=== PATIENT | male | born 1965 | race Caucasian/White ===

== ENCOUNTER 2019-04-21 20:21 | Emergency (ER) | payer MEDICARE ==
[~2019-04-21] VITALS: Ht 165.1 cm; Wt 122.1 kg
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
[2019-04-21 21:12] LABS: BASOPHILS # (AUTO) 0.05 x10^3/uL (0-0.1); BASOPHILS % (AUTO) 0 % (0-1); EOSINOPHILS # (AUTO) 0.11 x10^3/uL (0-0.4); EOSINOPHILS % (AUTO) 1 % (1-7); LYMPHOCYTES # (AUTO) 1.42 x10^3/uL (1-3.4); LYMPHOCYTES % (AUTO) 8 % (22-44); MD NO; MEAN CORPUSCULAR HEMOGLOBIN 31.5 pg (27.5-34.5); MEAN CORPUSCULAR HGB CONC 33.6 g/dL (33.2-36.2); MEAN CORPUSCULAR VOLUME 93.9 fL (81-97); MONOCYTES # (AUTO) 0.74 x10^3/uL (0.2-0.8); MONOCYTES % (AUTO) 4 % (2-9); NEUTROPHILS % (AUTO) 87 % (42-75); PLATELET COUNT 242 x10^3/uL (130-400); RED BLOOD COUNT 5.09 x10^6/uL (4.38-5.82); RED CELL DISTRIBUTION WIDTH 13.4 % (9.4-14.8)
[2019-04-21 21:19] LABS: ALANINE AMINOTRANSFERASE 42 U/L (12-78); ALBUMIN 4.4 g/dL (3.4-5.0); ANION GAP 6 mmol/L (5-15); CHLORIDE 108 mmol/L (98-107); CREATININE 1.02 mg/dL (0.7-1.3)
[2019-04-21 21:22] LABS: ALKALINE PHOSPHATASE 84 U/L (45-117); BILIRUBIN,TOTAL 0.8 mg/dL (0.2-1.0); TROPONIN I 0.089 ng/mL (0.000-0.045)
[2019-04-21] MEDS ORDERED: CLOPIDOGREL 75 MG TABLET ONE (21:40)
[2019-04-21] MEDS ORDERED: ONDANSETRON ODT 4 MG ONE (22:05)
--- NOTE | 2019-04-21 22:10 | NUR ---
REPORT GIVEN TO [facility]
--- NOTE | 2019-04-21 22:11 | NUR ---
REPORT FROM TEDDY LUGO, ASSUME CARE OF PT AT THIS TIME.
--- NOTE | 2019-04-21 22:21 | NUR ---
PT MEDICATED PER ERP ORDER. ED MEDIC TO START IV FOR ADMIT. PT CONFIRMS NO ASPIRIN TAKEN AT HOME TODAY.
[2019-04-21] MEDS ORDERED: ONDANSETRON ODT 4 MG PO ONE (22:30)
[2019-04-21] MEDS ORDERED: ASPIRIN 81 MG TABLET CHEW PO ONE (22:30)
[2019-04-21] MEDS ORDERED: ASPIRIN 81 MG TABLET CHEW ONE (22:31)
[2019-04-21] MEDS ORDERED: ONDANSETRON 2MG/ML, 2ML ONE (22:33)
--- NOTE | 2019-04-21 22:36 | NUR ---
PT WITH NAUSEA AND DRY HEAVING, ZOFRAN GIVEN IV.
[2019-04-21] MEDS ORDERED: METO-93 PO (22:48)
[2019-04-21] MEDS ORDERED: LISI5TAB7 PO (22:48)
[2019-04-21] MEDS ORDERED: METF500T17 PO (22:48)
[2019-04-21] MEDS ORDERED: DULO30CA2 PO (22:48)
--- NOTE | 2019-04-21 22:48 | NUR ---
N/V RELIEVED. PT SLEEPING. MED REC COMPLETED TO BEST OF ABILITY.
[2019-04-22 00:02] VITALS: BP 130/74
[2019-04-22] MEDS ORDERED: CLOPIDOGREL 75 MG TABLET PO SCH (09:00)
== END 2019-04-22 00:05 | disposition home or self-care (01) ==
LOC: ED 22:59
DX: R07.89 Other chest pain (principal); D72.829 Elevated white blood cell count, unspecified; R94.31 Abnormal electrocardiogram [ECG] [EKG]; G89.29 Other chronic pain; I10 Essential (primary) hypertension; E11.9 Type 2 diabetes mellitus without complications; I25.2 Old myocardial infarction; F41.9 Anxiety disorder, unspecified; R00.0 Tachycardia, unspecified
CPT/HCPCS: 36415; 71045; 80053; 84484; 85025; 93005; 99284; Q0162; 82962